=== PATIENT | male | born 1970 | race American Indian/Alaskan Native ===

== ENCOUNTER 2017-05-19 21:36 | Emergency (ER) | payer MEDICAID, OTHER ==
[2017-05-19 22:17] LABS: Basophils % (Auto) 0.6 % (0.0-1.8); Eosinophils % (Auto) 0.2 % (0.0-4.3); Hematocrit 41.5 % (35.5-45.6); Hemoglobin 13.4 gm/dl (11.8-15.2); Mean Corpuscular HGB Conc 32 % (32-34); Mean Corpuscular Volume 79 fl (84-94); Platelet Count 351 K/mm3 (140-440); Red Blood Count 5.24 M/mm3 (3.65-5.03); Red Cell Distribution Width 18.5 % (13.2-15.2); White Blood Count 12.5 K/mm3 (4.5-11.0)
[2017-05-19 22:19] LABS: Mean Corpuscular Hemoglobin 26 pg (28-32)
[2017-05-19 22:20] LABS: Anion Gap 22 mmol/L; BUN/Creatinine Ratio 15; Blood Urea Nitrogen 16 mg/dL (9-20); Calcium 9.8 mg/dL (8.4-10.2); Carbon Dioxide 25 mmol/L (22-30); Chloride 101.4 mmol/L (98-107); Glucose 71 mg/dL (75-100); Potassium 4.3 mmol/L (3.6-5.0); Sodium 144 mmol/L (137-145)
[2017-05-19 22:40] LABS: Urine Drugs of Abuse Note Disclamer
[2017-05-19 22:52] LABS: Bilirubin,Urine NEG (Negative); Blood,Urine NEG (Negative); Ketones,Urine 20 mg/dL (Negative); Leukocyte Esterase,Urine NEG (Negative); Mucus,Urine FEW /HPF; Nitrite,Urine NEG (Negative); Protein,Urine <15 mg/dL mg/dL (Negative)
--- NOTE | 2017-05-20 03:48 | Emergency Department Report ---
ED Psych HPI - General Chief Complaint: Psych Stated Complaint: SUICIDAL,DEPRESSED,HEARING VOICES Time Seen by Provider: 05/20/17 03:20 Source: patient Mode of arrival: Ambulatory - History of Present Illness Initial Comments: 47 YO MALE HEARING VOICES SINCE YESTERDAY WHO ARE TELLING HIM TO KILL HIMSELF.. HE ALSO FEELS DEPRESSED.SMELLS OF ALCOHOL.. MD Complaint: suicidal ideation -: days(s) (1) Associated Psychiatric Symptoms: depression, suicidal ideation History of same: Yes Quality: constant Improves With: none Context: recent alcohol abuse Associated Symptoms: denies other symptoms Treatments Prior to Arrival: none If Self Harm: admits thoughts of - Related Data Allergies Allergy/AdvReac Type Severity Reaction Status Date / Time fluoxetine [From Prozac] Allergy Unknown Verified 05/19/17 21:49 haloperidol [From Haldol] Allergy Unknown Verified 05/19/17 21:49 risperidone [From Risperdal] Allergy Unknown Verified 05/19/17 21:49 ED Review of Systems ROS: Stated complaint: SUICIDAL,DEPRESSED,HEARING VOICES Other details as noted in HPI Constitutional: denies: chills, fever Eyes: denies: eye pain, eye discharge, vision change ENT: denies: ear pain, throat pain Respiratory: denies: cough, shortness of breath, wheezing Cardiovascular: denies: chest pain, palpitations Endocrine: no symptoms reported Gastrointestinal: denies: abdominal pain, nausea, diarrhea Genitourinary: denies: urgency, dysuria Musculoskeletal: denies: back pain, joint swelling, arthralgia Skin: denies: rash, lesions Neurological: denies: headache, weakness, paresthesias Psychiatric: depression, auditory hallucinations, suicidal thoughts. denies: anxiety Hematological/Lymphatic: denies: easy bleeding, easy bruising ED Past Medical Hx - Past Medical History Previous Medical History?: Yes Hx Hypertension: Yes Hx Diabetes: Yes (boarderline) Hx Psychiatric Treatment: Yes (depression,suicidal attempts) Additional medical history: drug and alcohol addiction - Surgical History Past Surgical History?: Yes Additional Surgical History: CIRCUMCISION - Family History Family history: hypertension - Social History Smoking Status: Never Smoker Substance Use Type: Alcohol, Cocaine, Methamphetamines ED Physical Exam - General Limitations: No Limitations General appearance: alert, in no apparent distress - Head Head exam: Present: atraumatic, normocephalic - Eye Eye exam: Present: normal appearance, EOMI - ENT ENT exam: Present: mucous membranes moist - Neck Neck exam: Present: normal inspection, full ROM - Respiratory Respiratory exam: Present: normal lung sounds bilaterally. Absent: respiratory distress - Cardiovascular Cardiovascular Exam: Present: regular rate, normal rhythm. Absent: systolic murmur, diastolic murmur, rubs, gallop - GI/Abdominal GI/Abdominal exam: Present: soft, normal bowel sounds - Rectal Rectal exam: Present: deferred - Extremities Exam Extremities exam: Present: normal inspection, full ROM - Back Exam Back exam: Present: normal inspection - Neurological Exam Neurological exam: Present: alert, oriented X3 - Psychiatric Psychiatric exam: Present: normal affect, normal mood - Skin Skin exam: Present: warm, dry, intact, normal color. Absent: rash ED Course Vital Signs 05/19/17 05/20/17 21:45 03:22 Temperature 98.4 F 98 F Pulse Rate 85 78 Respiratory 18 18 Rate Blood Pressure 139/77 Blood Pressure 137/85 [Left] O2 Sat by Pulse 100 99 Oximetry ED Medical Decision Making - Lab Data Result diagrams: 05/19/17 21:51 05/19/17 21:51 Critical care attestation.: If time is entered above; I have spent that time in minutes in the direct care of this critically ill patient, excluding procedure time. ED Disposition Clinical Impression: Suicidal ideation, Medical clearance for psychiatric admission Depression Qualifiers: Depression Type: unspecified Qualified Code(s): F32.9 - Major depressive disorder, single episode, unspecified Disposition: DC/TX-65 PSY HOSP/PSY UNIT Is pt being admited?: Yes Does the pt Need Aspirin: No Condition: Stable Referrals: PRIMARY CARE, [Primary Care Provider] - 3-5 Days Time of Disposition: 06:24 ([facility]CULATION WORKER HAS SEEN AND IS ATTEMPTING TO FIND PLACEMENT FOR [facility] PT)
--- NOTE | 2017-05-20 14:54 | Consultation ---
History of Present Illness - Reason for Consult Consult date: 05/20/17 Reason for consult: Mental Health Evaluation Requesting physician: PEDRO PABLO REARDON - Chief Complaint Chief complaint: "I don't feel well mentally" - History of Present Psychiatric Illness 47 y.o. AA male presenting to [facility] for SI's and experiencing AH's. Today patient is calm, but withdrawn during the assessment. He stated that he hate his life and want to stop using recreational drugs. He stated not having family support when he is experiencing crisis. He stated being depressed because he hear voices telling him to kill himself. He stated that the voices are driving him "nutts." He endorses SI's without a plan at this time. He could not confirm or deny hearing voices when he isn't using recreational drugs. He stated that alcohol has been an issue in his life for several years. He stated drinking alcohol help "quiet" the voices he experience. He stated that he have not been medication compliant for months. The patient stated that he took Seroqiel in the past. He denies HI's and VH's. He denies manic episodes, but admitted to erratic sleep with a poor appetite the past few weeks. Medications and Allergies Allergies Allergy/AdvReac Type Severity Reaction Status Date / Time fluoxetine [From Prozac] Allergy Unknown Verified 05/19/17 21:49 haloperidol [From Haldol] Allergy Unknown Verified 05/19/17 21:49 risperidone [From Risperdal] Allergy Unknown Verified 05/19/17 21:49 Past psychiatric history - Past Medical History Past Medical History: hypertension Past Surgical History: No surgical history - past Psychiatric treatment and history Psych: Depression psychiatric treatment history: Multiple inpatient psy settings. Cannot confirm or deny a fam psy hx. - Social History Social history: other (Homeless) Mental Status Exam - Vital signs Last Vital Signs Temp 98 F 05/20/17 03:22 Pulse 78 05/20/17 03:22 Resp 18 05/20/17 03:22 BP 137/85 05/20/17 03:22 Pulse Ox 99 05/20/17 03:22 - Exam Narrative exam: MSE: Appearance: calm, cooperative Behavior: regular eye contact Speech: regular rate and tone Mood: "depressed" withdrawn Affect: flat Thought Process: circumstantial Thought Content: denies HI's and VH's Motor Activity: sitting up in bed Cognition: A/O x3 Insight: poor Judgment: poor Results Result Diagrams: 05/19/17 21:51 05/19/17 21:51 Abnormal lab results 05/19/17 05/19/17 Range/Units 21:51 21:51 WBC 12.5 H (4.5-11.0) K/mm3 RBC 5.24 H (3.65-5.03) M/mm3 MCV 79 L (84-94) fl MCH 26 L (28-32) pg RDW 18.5 H (13.2-15.2) % Lymph % (Auto) 10.1 L (13.4-35.0) % Seg Neutrophils % 86.3 H (40.0-70.0) % Seg Neutrophils # 10.8 H (1.8-7.7) K/mm3 Glucose 71 L (75-100) mg/dL All other labs normal. Assessment and Plan Assessment and plan: Impression: Unspecified Mood DO with psy featiures. Substance Use DO (cocaine/ marijuana). Alcohol Use DO. Today patient is calm, but withdrawn during the assessment. Patient endorses SI's. Patient positive for marijuana and cocaine. Elevated alcohol serum 0.03 on admission. DDx: R/O Bipolar DO, MDD, Schizoaffective DO, R/O Substance Induced Mood/ Psychotic DO, R/O Alcohol Use DO Recommendation/Plan: Continue 1013 with placement to inpatient psy services. Start Seroquel 200 mg PO HS for psychosis/mood. Discussed possible metabolic side effects of Seroquel with patient.
[2017-05-21 09:40] VITALS: BP 132/94
--- NOTE | 2017-05-21 10:24 | Progress Note ---
Subjective - Reason for Consult Consult date: 05/21/17 Reason for consult: Psychiatry Follow-up - Chief Complaint Chief complaint: "I need help" 47 y.o. AA male presenting to [facility] for SI's and experiencing AH's. Today patient is calm and cooperative during the assessment. He stated being upset with himself because of the choices he make. He stated that his biggest issue is "using drugs." He stated that the voices are still active and he still endorses SI's. He denies HI's and VH's. He denies any side effects of his medication. Mental Status Exam - Vital signs Last Vital Signs Temp 97.9 F 05/21/17 08:00 Pulse 66 05/21/17 08:00 Resp 18 05/21/17 08:00 BP 132/94 05/21/17 08:00 Pulse Ox 100 05/21/17 08:00 - Exam Narrative exam: MSE: Appearance: calm, cooperative Behavior: regular eye contact Speech: regular rate and tone Mood: "depressed" Affect: flat Thought Process: circumstantial Thought Content: denies HI's and VH's Motor Activity: sitting up in bed Cognition: A/O x3 Insight: poor Judgment: poor Assessment and Plan Impression: Unspecified Mood DO with psy featiures. Substance Use DO (cocaine/ marijuana). Alcohol Use DO. Today patient is calm, but withdrawn during the assessment. Patient endorses SI's. Patient positive for marijuana and cocaine. Elevated alcohol serum 0.03 on admission. DDx: R/O Bipolar DO, MDD, Schizoaffective DO, R/O Substance Induced Mood/ Psychotic DO, R/O Alcohol Use DO Recommendation/Plan: Continue 1013 with placement to [facility] today. Continue Seroquel 200 mg PO HS for psychosis/mood. Discussed possible metabolic side effects of Seroquel with patient.
== END 2017-05-21 10:48 ==
LOC: ED 21:36
DX: F32.9 Major depressive disorder, single episode, unspecified (principal); R45.851 Suicidal ideations; R44.0 Auditory hallucinations; I10 Essential (primary) hypertension; E11.9 Type 2 diabetes mellitus without complications; F15.10 Other stimulant abuse, uncomplicated; F14.10 Cocaine abuse, uncomplicated; F10.10 Alcohol abuse, uncomplicated; Z88.8 Allergy status to other drugs, medicaments and biological substances
CPT/HCPCS: 36415; 80048; 80307; 81001; 85025; 99285; G0480; 80320

== ENCOUNTER 2020-03-06 11:14 | Emergency (ER) | payer MEDICAID ==
[2020-03-06] MEDS ORDERED: LORazepam 2 MG/ML VIAL IM PRN (11:49)
--- NOTE | 2020-03-06 11:50 | Emergency Department Report ---
ED Psych HPI - General Chief Complaint: Psych Stated Complaint: SI Time Seen by Provider: 03/06/20 11:42 Source: patient, EMS ( EMS documentation not available at time of chart dictation ), RN notes reviewed, old records reviewed Mode of arrival: Ambulatory Limitations: No Limitations - History of Present Illness Initial Comments: The patient was evaluated in the emergency department for symptoms described in the history of present illness. He/she was evaluated in the context of the global COVID-19 pandemic, which necessitated consideration that the patient might be at risk for infection with the virus that causes COVID-19. Institutional protocols and algorithms that pertain to the evaluation of patients at risk for COVID-19 are in a state of rapid change based on information released by regulatory bodies including the CDC and federal and [facility] organizations. These policies and algorithms were followed during the patient's care in the emergency department. Please note that these policies, procedures and recommendations changed on a rapid basis. Patient is a 50-year-old gentleman with a history of psychiatric disease, reports that he currently takes trazodone, presenting to the ER with a complaint of auditory hallucinations and plan to kill himself. He states that he will cut himself. He states he has not overdosed on anything. He does not have homicidality. He specifically denies headache, neck pain, chest pain, abdominal pain, shortness of breath, cough, loss of taste, and loss of smell. MD Complaint: suicidal ideation, feels depressed -: days(s) Associated Psychiatric Symptoms: suicidal ideation, auditory hallucinations History of same: Yes Quality: constant Improves With: none Worsens With: none If Self Harm: admits thoughts of, has plan - Related Data Home Medications Medication Instructions Recorded Confirmed Last Taken Benztropine 0.5 mg PO QAM 03/06/20 03/06/20 03/05/20 OLANzapine [Zyprexa] 10 mg PO QHS 03/06/20 03/06/20 03/05/20 Paliperidone Palmitate (Nf) 156 mg IM QMONTH 03/06/20 03/06/20 Unknown [Invega Sustenna (Nf)] traZODone [Desyrel] 100 mg PO QHS 03/06/20 03/06/20 03/05/20 Allergies Allergy/AdvReac Type Severity Reaction Status Date / Time fluoxetine [From Prozac] Allergy Unknown Verified 05/19/17 21:49 haloperidol [From Haldol] Allergy Unknown Verified 05/19/17 21:49 risperidone [From Risperdal] Allergy Unknown Verified 05/19/17 21:49 ED Review of Systems ROS: Stated complaint: SI Other details as noted in HPI Constitutional: denies: fever Eyes: denies: eye discharge ENT: denies: epistaxis Respiratory: denies: cough Cardiovascular: denies: chest pain Gastrointestinal: denies: abdominal pain Genitourinary: denies: dysuria Musculoskeletal: myalgia Skin: denies: lesions Neurological: denies: weakness Psychiatric: anxiety, depression, auditory hallucinations, suicidal thoughts. denies: homicidal thoughts ED Past Medical Hx - Past Medical History Hx Hypertension: Yes Hx Diabetes: Yes (boarderline) Hx Psychiatric Treatment: Yes (depression,suicidal attempts) Additional medical history: drug and alcohol addiction - Surgical History Additional Surgical History: CIRCUMCISION - Social History Smoking Status: Never Smoker Substance Use Type: Alcohol, Cocaine, Methamphetamines - Medications Home Medications: Home Medications Medication Instructions Recorded Confirmed Last Taken Type Benztropine 0.5 mg PO QAM 03/06/20 03/06/20 03/05/20 History OLANzapine [Zyprexa] 10 mg PO QHS 03/06/20 03/06/20 03/05/20 History Paliperidone Palmitate (Nf) 156 mg IM QMONTH 03/06/20 03/06/20 Unknown History [Invega Sustenna (Nf)] traZODone [Desyrel] 100 mg PO QHS 03/06/20 03/06/20 03/05/20 History ED Physical Exam - General Limitations: No Limitations General appearance: alert, in no apparent distress - Head Head exam: Present: atraumatic, normocephalic - Eye Eye exam: Present: normal appearance, EOMI. Absent: nystagmus - ENT ENT exam: Present: normal exam, normal orophraynx, mucous membranes moist, normal external ear exam - Neck Neck exam: Present: normal inspection, full ROM. Absent: tenderness, meningismus - Respiratory Respiratory exam: Present: normal lung sounds bilaterally. Absent: respiratory distress, wheezes, rales, rhonchi, stridor, decreased breath sounds - Cardiovascular Cardiovascular Exam: Present: regular rate, normal rhythm, normal heart sounds. Absent: bradycardia, tachycardia, irregular rhythm, systolic murmur, diastolic murmur, rubs, gallop - GI/Abdominal GI/Abdominal exam: Present: soft. Absent: distended, tenderness, guarding, rebound, rigid, pulsatile mass - Rectal Rectal exam: Present: deferred - Extremities Exam Extremities exam: Present: normal inspection, full ROM, other (2+ pulses noted in the bilateral upper extremities. There is no long bony tenderness. The muscular compartments are soft. The pelvis is stable.). Absent: pedal edema, calf tenderness - Back Exam Back exam: Present: normal inspection, full ROM. Absent: tenderness, CVA tenderness (R), CVA tenderness (L), paraspinal tenderness, vertebral tenderness - Neurological Exam Neurological exam: Present: alert, normal gait, other (No facial droop. Tongue midline. Extraocular movements intact bilaterally. Facial sensation intact to light touch in V1, V2, V3 distribution bilaterally. 5 and a 5 strength in 4 extremities. Sensation intact to light touch in 4 extremities.). Absent: motor sensory deficit - Psychiatric Psychiatric exam: Present: suicidal ideation - Skin Skin exam: Present: warm, dry, intact, normal color. Absent: rash ED Course Vital Signs 03/06/20 14:14 Temperature 97.8 F Pulse Rate 87 Respiratory 16 Rate Blood Pressure 147/98 [Left] Blood Pressure 148/100 [Right] O2 Sat by Pulse 99 Oximetry - Reevaluation(s) Reevaluation #1: 03/06/20 12:13 Differential diagnosis, including but not limited to: Suicidality, medical clearance for psychiatric placement Assessment and plan: 50-year-old gentleman, with no acute medical complaints, Who is afebrile, with reassuring vital signs, with a benign and unremarkable p hysical examination, here with report of auditory hallucinations and plan to kill himself. Placed on hold, obtain psychiatric consultation, obtain appropriate laboratory studies to exclude emergent toxicologic ingestion, we clinically do not suspect COVID at this time. Discussed plan of care with the patient, who verbalized understanding, and who is amenable to this plan of care. Reevaluation #2: 03/06/20 14:36 Vital signs reviewed, appreciated, and unremarkable. The psychiatry team has recommended a 1013, which I have signed and filled out. The psychiatry team has requested a COVID test, for screening purposes, for placement to our fifth floor psychiatry unit. I do not clinically suspect COVID, but we will order the tests to facilitate placement. At this point in time, patient does not appear to have an immediate medical contraindication to psychiatric admission, evaluation, consultation and placement. ED Medical Decision Making - Lab Data Result diagrams: 03/06/20 12:11 03/06/20 12:11 Lab Results 03/06/20 03/06/20 03/06/20 Range/Units 11:55 11:55 12:11 Hgb 12.9 (11.8-15.2) gm/dl Hct 37.4 (35.5-45.6) % Plt Count 338 (140-440) K/mm3 Sodium (137-145) mmol/L Potassium (3.6-5.0) mmol/L Chloride (98-107) mmol/L Carbon Dioxide (22-30) mmol/L Anion Gap mmol/L BUN (9-20) mg/dL Creatinine (0.8-1.3) mg/dL Estimated GFR ml/min BUN/Creatinine Ratio % Glucose (75-100) mg/dL Calcium (8.4-10.2) mg/dL Magnesium (1.7-2.3) mg/dL Total Creatine Kinase (55-170) units/L Urine Color Yellow (Yellow) Urine Turbidity Clear (Clear) Urine pH 6.0 (5.0-7.0) Ur Specific [place] 1.014 (1.003-1.030) Urine Protein <15 mg/dl (Negative) mg/dL Urine Glucose (UA) Neg (Negative) mg/dL Urine Ketones Neg (Negative) mg/dL Urine Blood Neg (Negative) Urine Nitrite Neg (Negative) Urine Bilirubin Neg (Negative) Urine Urobilinogen < 2.0 (<2.0) mg/dL Ur Leukocyte Esterase Neg (Negative) Urine WBC (Auto) < 1.0 (0.0-6.0) /HPF Urine RBC (Auto) 1.0 (0.0-6.0) /HPF Urine Mucus Few /HPF Salicylates (2.8-20.0) mg/dL Urine Opiates Screen Negative Urine Methadone Screen Negative Acetaminophen (10.0-30.0) ug/mL Ur Barbiturates Screen Negative Ur Phencyclidine Scrn Negative Ur Amphetamines Screen Negative U Benzodiazepines Scrn Negative Urine Cocaine Screen Negative U Marijuana (THC) Screen Negative Drugs of Abuse Note Disclamer Plasma/Serum Alcohol (0-0.07) % 03/06/20 03/06/20 03/06/20 Range/Units 12:11 12:11 12:11 Hgb (11.8-15.2) gm/dl Hct (35.5-45.6) % Plt Count (140-440) K/mm3 Sodium 138 (137-145) mmol/L Potassium 3.7 (3.6-5.0) mmol/L Chloride 103.6 (98-107) mmol/L Carbon Dioxide 25 (22-30) mmol/L Anion Gap 13 mmol/L BUN 11 (9-20) mg/dL Creatinine 1.2 (0.8-1.3) mg/dL Estimated GFR > 60 ml/min BUN/Creatinine Ratio 9 % Glucose 98 (75-100) mg/dL Calcium 9.9 (8.4-10.2) mg/dL Magnesium 2.00 (1.7-2.3) mg/dL Total Creatine Kinase 254 H (55-170) units/L Urine Color (Yellow) Urine Turbidity (Clear) Urine pH (5.0-7.0) Ur Specific [place] (1.003-1.030) Urine Protein (Negative) mg/dL Urine Glucose (UA) (Negative) mg/dL Urine Ketones (Negative) mg/dL Urine Blood (Negative) Urine Nitrite (Negative) Urine Bilirubin (Negative) Urine Urobilinogen (<2.0) mg/dL Ur Leukocyte Esterase (Negative) Urine WBC (Auto) (0.0-6.0) /HPF Urine RBC (Auto) (0.0-6.0) /HPF Urine Mucus /HPF Salicylates 0.3 L (2.8-20.0) mg/dL Urine Opiates Screen Urine Methadone Screen Acetaminophen 5.0 L (10.0-30.0) ug/mL Ur Barbiturates Screen Ur Phencyclidine Scrn Ur Amphetamines Screen U Benzodiazepines Scrn Urine Cocaine Screen U Marijuana (THC) Screen Drugs of Abuse Note Plasma/Serum Alcohol (0-0.07) % 03/06/20 Range/Units 12:11 Hgb (11.8-15.2) gm/dl Hct (35.5-45.6) % Plt Count (140-440) K/mm3 Sodium (137-145) mmol/L Potassium (3.6-5.0) mmol/L Chloride (98-107) mmol/L Carbon Dioxide (22-30) mmol/L Anion Gap mmol/L BUN (9-20) mg/dL Creatinine (0.8-1.3) mg/dL Estimated GFR ml/min BUN/Creatinine Ratio % Glucose (75-100) mg/dL Calcium (8.4-10.2) mg/dL Magnesium (1.7-2.3) mg/dL Total Creatine Kinase (55-170) units/L Urine Color (Yellow) Urine Turbidity (Clear) Urine pH (5.0-7.0) Ur Specific [place] (1.003-1.030) Urine Protein (Negative) mg/dL Urine Glucose (UA) (Negative) mg/dL Urine Ketones (Negative) mg/dL Urine Blood (Negative) Urine Nitrite (Negative) Urine Bilirubin (Negative) Urine Urobilinogen (<2.0) mg/dL Ur Leukocyte Esterase (Negative) Urine WBC (Auto) (0.0-6.0) /HPF Urine RBC (Auto) (0.0-6.0) /HPF Urine Mucus /HPF Salicylates (2.8-20.0) mg/dL Urine Opiates Screen Urine Methadone Screen Acetaminophen (10.0-30.0) ug/mL Ur Barbiturates Screen Ur Phencyclidine Scrn Ur Amphetamines Screen U Benzodiazepines Scrn Urine Cocaine Screen U Marijuana (THC) Screen Drugs of Abuse Note Plasma/Serum Alcohol < 0.01 (0-0.07) % Vital Signs 03/06/20 14:14 Temperature 97.8 F Pulse Rate 87 Respiratory 16 Rate Blood Pressure 147/98 [Left] Blood Pressure 148/100 [Right] O2 Sat by Pulse 99 Oximetry Critical care attestation.: If time is entered above; I have spent that time in minutes in the direct care of this critically ill patient, excluding procedure time. ED Disposition Clinical Impression: Medical clearance for psychiatric admission, Suicidal ideation, Auditory hallucinations Disposition: DC/TX-65 PSY HOSP/PSY UNIT Is pt being admited?: No Does the pt Need Aspirin: No Condition: Good
[2020-03-06 12:07] LABS: Bilirubin,Urine NEG (Negative); Blood,Urine NEG (Negative); Color,Urine Yellow (Yellow); Mucus,Urine FEW /HPF; Protein,Urine <15 mg/dL mg/dL (Negative); Urobilinogen,Urine < 2.0 mg/dL (<2.0); WBC,Urine < 1.0 /HPF (0.0-6.0)
[2020-03-06 12:18] LABS: Amphetamine Screen,Urine Negative; Benzodiazepines Screen,Urine Negative; Cannabinoid Screen,Urine Negative; Cocaine Screen,Urine Negative; Methadone Screen,Urine Negative; Opiate Screen,Urine Negative
[2020-03-06 12:33] LABS: Hematocrit 37.4 % (35.5-45.6); Hemoglobin 12.9 gm/dl (11.8-15.2)
[2020-03-06 13:16] LABS: BUN/Creatinine Ratio 9; Blood Urea Nitrogen 11 mg/dL (9-20); Calcium 9.9 mg/dL (8.4-10.2); Hemolysis Index 4
[2020-03-06] MEDS ORDERED: FLUoxetine 10 MG TAB PO SCH (22:00)
[2020-03-06] MEDS ORDERED: BENZTROPINE 1 MG TAB PO SCH (22:00)
[2020-03-06] MEDS ORDERED: traZODone 50 MG TAB PO SCH (22:00)
[2020-03-06] MEDS ORDERED: MELATONIN 5 MG TAB PO SCH (22:00)
[2020-03-07 09:01] VITALS: BP 161/99
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
== END 2020-03-07 15:47 ==
LOC: ED 11:14 → EEVIPCON 11:14 → ED 03-07 15:47
DX: R45.851 Suicidal ideations (principal); R44.0 Auditory hallucinations; I10 Essential (primary) hypertension; E11.9 Type 2 diabetes mellitus without complications; F14.10 Cocaine abuse, uncomplicated; F15.10 Other stimulant abuse, uncomplicated; Z79.899 Other long term (current) drug therapy; Z88.6 Allergy status to analgesic agent
CPT/HCPCS: 36415; 80048; 80307; 81001; 82550; 83735; 85014; 85018; 85049; 99284; U0003; 80320; G0480

== ENCOUNTER 2020-03-07 15:32 | Inpatient (IN) | payer MEDICAID ==
[2020-03-07] MEDS ORDERED: FLUoxetine 10 MG TAB PO SCH (18:00)
[2020-03-07 18:57] LABS: Basophils % (Auto) 0.8 % (0.0-1.8); Eosinophils # (Auto) 0.2 K/mm3 (0.0-0.4); Eosinophils % (Auto) 3.6 % (0.0-4.3); Hematocrit 35.7 % (35.5-45.6); Hemoglobin 12.1 gm/dl (11.8-15.2); Lymphocytes # (Auto) 1.6 K/mm3 (1.2-5.4); Mean Corpuscular HGB Conc 34 % (32-34); Mean Corpuscular Volume 80 fl (84-94); Monocytes # (Auto) 0.3 K/mm3 (0.0-0.8); Monocytes % (Auto) 6.4 % (0.0-7.3); Platelet Count 310 K/mm3 (140-440); Red Blood Count 4.49 M/mm3 (3.65-5.03); Red Cell Distribution Width 18.1 % (13.2-15.2)
[2020-03-07 19:14] LABS: Chol/HDL Ratio 5.11 %
[2020-03-07] MEDS: traZODone 50 MG TAB PO SCH (21:07)
--- NOTE | 2020-03-08 08:33 | History and Physical Report ---
GP History & Physical - History of Present Illness Date of admission: 03/07/20 Date of Examination: 03/08/20 Reason for Admission: Danger to self, Severe anxiety/depression History of Present Illness: The patient's medical record was reviewed and the patient's progress was discussed with the nursing staff. During my interview with the patient this morning, he is sitting in the dayroom. He is a/o x 3. He is calm and cooperative. The patient expresses thoughts of suicidal and hearing voices telling him to harm himself. He says, "I do feel a little better than yesterday." The patient says he was diagnosed with "schizoaffective disorder." He says he takes "invega injection." The patient says he had it "Sunday," and says his "other meds are not working." Mr. Serrato says he's attempted suicide "three times, by cutting myself, and I tried to hang myself with my shoestring." He says he's had "a lot of admits." The patient denies illicit drug use, or alcohol. He says he smokes "a pack of cigarets a day." PAST PSYCHIATRIC HISTORY Diagnoses: schizoaffective disorder Suicide attempts or Self-harm behavior: three Prior psychiatric hospitalizations: "a lot" Substance Abuse history: Denies Previous psychiatric medications tried: Invega Outpatient treatment: yes PAST MEDICAL HISTORY: sciatic nerve Family Psychiatric History: None reported or documented SOCIAL HISTORY Marital Status: Living Arrangements: personal [facility] Employment Status: Disabled Access to guns/weapons: Denies Education: high school grad History of Abuse: Denies Legal History: Denies EVIEW OF SYSTEMS Constitutional: Negative for weight loss ENT: Negative for stridor Respiratory: Negative for cough or hemoptysis All other systems reviewed and are negative MENTAL STATUS EXAMINATION General Appearance and Behavior: Age appropriate, wearing appropriate clothes, calm and cooperative. Polite Mood: "a little better" Affect and affective range: congruent with mood Thought Process: logical Thought Content: hallucinations Speech: Normal volume, Regular rate and rhythm Suicidal Ideation: Yes Homicidal Ideation: Denies Homicidal Hallucinations: Denies Delusions: None elicited Impulse Control: Unimpaired Insight and Judgment: Normal insight and judgment Memory: Normal Attention: Normal Orientation: Alert, oriented Assessment (1) Schizoaffective Disorder Treatment Plan Patient admitted for inpatient psychiatric evaluation, medication adjustment and close monitoring The patient's behavior, mood, sleep and appetite will be closely monitored. Patient enrolled in individual and group therapeutic sessions and encouraged to attend. Patient provided with a safe and structured environment. Patient's physical health needs will be addressed by the Hospitalist. Hospitalist Consulted Labs including CBC, CMP, Lipid profile and Hemoglobin A1C levels ordered for baseline reference Social Assessment will be completed and the Charge Master Coordinator will work with patient and family to ensure a suitable and safe disposition Medication adjustment will be made as clinically indicated Increase Olanzapine 15mg po daily Usual Wellness Rastafari/Preservation: - Start Trazodone 50 mg po QHS & 50 mg po QHS PRN between 10 PM & 2 AM for insomnia - Start Melatonin 5 mg po QHS to promote circadian rhythm The patient agreed on the treatment plan, understood the risk, benefit, alternative treatment, potential consequence of no treatment, and gave informed consent. The patient is expected to improve for the treatment of schizoaffective disorder. Estimated days: 7 Post hospital care: primary care provider, psychiatric provider Legal Status: Voluntary Reaction to Hospitalization: Accepting Medications and Allergies Allergies Allergy/AdvReac Type Severity Reaction Status Date / Time fluoxetine [From Prozac] Allergy Unknown Verified 05/19/17 21:49 haloperidol [From Haldol] Allergy Unknown Verified 05/19/17 21:49 risperidone [From Risperdal] Allergy Unknown Verified 05/19/17 21:49 Home Medications Medication Instructions Recorded Confirmed Last Taken Type Benztropine 0.5 mg PO QAM 03/06/20 03/07/20 03/05/20 History OLANzapine [Zyprexa] 10 mg PO QHS 03/06/20 03/07/20 03/05/20 History Paliperidone Palmitate (Nf) 156 mg IM QMONTH 03/06/20 03/07/20 Unknown History [Invega Sustenna (Nf)] traZODone [Desyrel] 100 mg PO QHS 03/06/20 03/07/20 03/05/20 History Active Meds: Active Medications Olanzapine (Zyprexa) 10 mg PO QHS [facility] Last Admin: 03/07/20 21:08 Dose: 10 mg Documented by: Trazodone HCl (Desyrel) 100 mg PO QHS [facility] Last Admin: 03/07/20 21:07 Dose: 100 mg Documented by: Results - Results Labs/Vitals: Laboratory Last Values WBC 4.9 K/mm3 (4.5-11.0) 03/07/20 18:44 RBC 4.49 M/mm3 (3.65-5.03) 03/07/20 18:44 Hgb 12.1 gm/dl (11.8-15.2) 03/07/20 18:44 Hct 35.7 % (35.5-45.6) 03/07/20 18:44 MCV 80 fl (84-94) L 03/07/20 18:44 MCH 27 pg (28-32) L 03/07/20 18:44 MCHC 34 % (32-34) 03/07/20 18:44 RDW 18.1 % (13.2-15.2) H 03/07/20 18:44 Plt Count 310 K/mm3 (140-440) 03/07/20 18:44 Lymph % (Auto) 33.0 % (13.4-35.0) 03/07/20 18:44 [place] % (Auto) 6.4 % (0.0-7.3) 03/07/20 18:44 Eos % (Auto) 3.6 % (0.0-4.3) 03/07/20 18:44 Baso % (Auto) 0.8 % (0.0-1.8) 03/07/20 18:44 Lymph # (Auto) 1.6 K/mm3 (1.2-5.4) 03/07/20 18:44 [place] # (Auto) 0.3 K/mm3 (0.0-0.8) 03/07/20 18:44 Eos # (Auto) 0.2 K/mm3 (0.0-0.4) 03/07/20 18:44 Baso # (Auto) 0.0 K/mm3 (0.0-0.1) 03/07/20 18:44 Seg Neutrophils % 56.2 % (40.0-70.0) 03/07/20 18:44 Seg Neutrophils # 2.8 K/mm3 (1.8-7.7) 03/07/20 18:44 POC Glucose 135 (70-105) H 03/07/20 18:33 Hemoglobin A1c 6.0 % (4-6) 03/07/20 18:41 Triglycerides 240 mg/dL (2-149) H 03/07/20 18:41 Cholesterol 230 mg/dL (50-199) H 03/07/20 18:41 LDL Cholesterol Direct 162 mg/dL (50-130) H 03/07/20 18:41 HDL Cholesterol 45 mg/dL (40-59) 03/07/20 18:41 Cholesterol/HDL Ratio 5.11 % 03/07/20 18:41 TSH 0.851 mlU/mL (0.270-4.200) 03/07/20 18:41 Last Vital Signs Temp 98.6 F 03/08/20 07:29 Pulse 72 03/08/20 07:29 Resp 18 03/08/20 07:29 BP 139/93 03/08/20 07:29 Pulse Ox 99 03/08/20 07:29 Physical Examination - Constitutional Vitals: Vital Signs Temp Pulse Resp BP Pulse Ox 98.6 F 72 18 139/93 99 03/08/20 07:29 03/08/20 07:29 03/08/20 07:29 03/08/20 07:29 03/08/20 07:29 Temperature -Last 24 Hours Temperature 98.6 F Temperature 98.4 F Temperature 98.0 F Mental Status Exam - Vital signs Last Vital Signs Temp 98.6 F 03/08/20 07:29 Pulse 72 03/08/20 07:29 Resp 18 03/08/20 07:29 BP 139/93 03/08/20 07:29 Pulse Ox 99 03/08/20 07:29 Physician Certification - Certification Statement Physician Certification Statement: This is an acknowledgement statement that TOMASZ SERRATO III is a 50 year old M who requires inpatient psychiatric admission for treatment which could reasonably be expected to improve the patient's condition for Estimated period of time patient will need to remain in the hospital: [ ] Plan for post-hospital care: [ ]
[2020-03-08] MEDS: BENZTROPINE 0.5 MG TAB PO SCH (09:21)
[2020-03-08] MEDS ORDERED: BENZTROPINE 0.5 MG PO SCH (10:00)
--- NOTE | 2020-03-08 14:21 | Consultation ---
History of Present Illness - Reason for Consult Consult date: 03/08/20 Medical management Requesting physician: CAPRICE PRINCE - History of Present Illness 50-year-old male with hypertension and substance abuse admitted to [facility] with suicidal ideations and has been diagnosed with schizoaffective disorder. We were consulted for medical management while inpatient. Patient denies any fevers, chills, cough, chest pain, hemoptysis, involuntary weight loss, fatigue or night sweats. Patient denies any sick contacts or contact with persons with known COVID-19. Past History Past Medical History: hypertension ("Borderline") Past Surgical History: No surgical history Social history: , lives with family, smoking, full code. denies: alcohol abuse, prescription drug abuse, IV drug use Family history: hypertension Medications and Allergies Allergies Allergy/AdvReac Type Severity Reaction Status Date / Time fluoxetine [From Prozac] Allergy Unknown Verified 05/19/17 21:49 haloperidol [From Haldol] Allergy Unknown Verified 05/19/17 21:49 risperidone [From Risperdal] Allergy Unknown Verified 05/19/17 21:49 Home Medications Medication Instructions Recorded Confirmed Last Taken Type Benztropine 0.5 mg PO QAM 03/06/20 03/07/20 03/05/20 History OLANzapine [Zyprexa] 10 mg PO QHS 03/06/20 03/07/20 03/05/20 History Paliperidone Palmitate (Nf) 156 mg IM QMONTH 03/06/20 03/07/20 Unknown History [Invega Sustenna (Nf)] traZODone [Desyrel] 100 mg PO QHS 03/06/20 03/07/20 03/05/20 History Active Meds: Active Medications Benztropine Mesylate (Cogentin) 0.5 mg PO DAILY [facility] Last Admin: 03/08/20 09:21 Dose: 0.5 mg Documented by: Melatonin (Melatonin) 5 mg PO QHS PRN PRN Reason: Sleep Olanzapine (Zyprexa) 15 mg PO QDAY [facility] Last Admin: 03/08/20 09:21 Dose: 15 mg Documented by: Trazodone HCl (Desyrel) 100 mg PO QHS [facility] Last Admin: 03/07/20 21:07 Dose: 100 mg Documented by: Review of Systems Constitutional: no weight loss, no weight gain, no fever, no chills, no sweats, no night sweats, no anorexia, no fatigue, no weakness, no malaise, no lethargy Ears, nose, mouth and throat: no ear pain, no ear discharge, no tinnitis, no decreased hearing, no nose pain, no nasal congestion, no nasal discharge, no sinus pressure, no sinus pain, no epistaxis, no bleeding gums, no dental pain, no mouth pain, no dysphagia Cardiovascular: no chest pain, no orthopnea, no palpitations, no rapid/irregular heart beat, no edema, no syncope, no lightheadedness, no shortness of breath, no dyspnea on exertion, no paroxysmal nocturnal dyspnea, no claudication, no phlebitis, no high blood pressure, no leg edema Respiratory: no cough, no cough with sputum, no excessive sputum, no hemoptysis, no shortness of breath, no dyspnea on exertion, no congestion, no wheezing, no pleurisy, no pain, no pain on inspiration Gastrointestinal: no abdominal pain, no nausea, no vomiting, no diarrhea, no change in bowel habits, no hematemesis, no hematochezia Genitourinary Male: no dysuria, no hematuria, no flank pain, no discharge, no urinary frequency, no urinary hesitancy, no nocturia, no incontinence Rectal: no pain, no incontinence, no bleeding Musculoskeletal: no neck stiffness, no neck pain, no shooting arm pain, no arm numbness/tingling, no low back pain, no shooting leg pain, no leg numbne ss/tingling Integumentary: no pruritis, no redness, no sores, no wounds, no jaundice, no blisters, no darkening of skin, no depigmentation Neurological: no head injury, no transient paralysis, no paralysis, no parathesias, no numbness, no tingling, no seizures, no syncope, no tremors, no ataxia, no vertigo, no headaches, no migraines, no paralysis Psychiatric: suicidal ideation, no anxiety, no memory loss, no change in sleep habits, no sleep disturbances, no insomnia, no hypersomnia, no change in appetite Endocrine: no cold intolerance, no heat intolerance, no polyphagia, no excessive thirst, no polydipsia, no polyuria, no nocturia, no weight change Hematologic/Lymphatic: no easy bruising, no easy bleeding Allergic/Immunologic: no urticaria, no allergic rhinitis Exam - Constitutional Vitals: Temp Pulse Resp BP Pulse Ox 98.6 F 72 18 139/93 99 03/08/20 07:29 03/08/20 07:29 03/08/20 07:29 03/08/20 07:29 03/08/20 07:29 General appearance: Present: no acute distress - EENT Eyes: Present: PERRL, EOM intact ENT: hearing intact, clear oral mucosa - Neck Neck: Present: supple - Respiratory Respiratory effort: normal Respiratory: bilateral: CTA - Cardiovascular Rhythm: regular Heart Sounds: Present: S1 & S2. Absent: systolic murmur, diastolic murmur - Extremities Extremities: no ischemia, pulses intact, pulses symmetrical, No edema, normal temperature, normal color - Abdominal General gastrointestinal: Present: soft, non-tender, non-distended, normal bowel sounds - Integumentary Integumentary: Present: clear, warm, dry - Musculoskeletal Musculoskeletal: strength equal bilaterally - Psychiatric Psychiatric: cooperative - Neurologic Neurologic: CNII-XII intact, no focal deficits, moves all extremities - Allied Health Allied health notes reviewed: nursing Results - Labs CBC & Chem 7: 03/07/20 18:44 Labs: Abnormal lab results 03/07/20 03/07/20 03/07/20 Range/Units 18:33 18:41 18:44 MCV 80 L (84-94) fl MCH 27 L (28-32) pg RDW 18.1 H (13.2-15.2) % POC Glucose 135 H (70-105) Triglycerides 240 H (2-149) mg/dL Cholesterol 230 H (50-199) mg/dL LDL Cholesterol Direct 162 H (50-130) mg/dL Assessment and Plan - Patient Problems (1) Hypertension Current Visit: Yes Status: Chronic Plan to address problem: Patient and his girlfriend state that he is borderline hypertensive Started on low-dose amlodipine Blood pressure monitored by protocol Patient ASCVD risk score greater than 20% over 10 years without aspirin use therefore was r started on the low-dose aspirin (2) Schizoaffective disorder Current Visit: No Status: Acute Plan to address problem: Management per primary (3) DVT prophylaxis Current Visit: Yes Status: Acute Plan to address problem: SCDs to bilateral lower extremities while in bed
[2020-03-08] MEDS: ASPIRIN 81 MG TAB CHEW PO SCH (15:34)
[2020-03-08] MEDS: amLODIPine 5 MG TAB PO SCH (15:34)
[2020-03-08] MEDS: traZODone 50 MG TAB PO SCH (21:23)
[2020-03-08] MEDS ORDERED: MELATONIN 5 MG TAB PO PRN (22:00)
--- NOTE | 2020-03-09 08:24 | Progress Note ---
Subjective Date of service: 03/09/20 Principal diagnosis: Schizoaffective Disorder Subjective Comment: During my interview with the patient this morning, he is sitting in the dayroom. The patient states he is doing "better." He says "the meds are working." He says the "voices are decreasing." He denies SI/HI, stating "right now, I don't feel suicidal." He says "my fiance wants me to come home, and I feel like I'm ready." Reason for continued inpatient treatment: The patient has improved significantly, will continue to treat and plan for a safe discharge. REVIEW OF SYSTEMS Constitutional: Negative for weight loss ENT: Negative for stridor Respiratory: Negative for cough or hemoptysis All other systems reviewed and are negative MENTAL STATUS EXAMINATION General Appearance and Behavior: Age appropriate, wearing appropriate clothes, calm and cooperative. Polite Mood: "better" Affect and affective range: congruent with mood Thought Process: goal directed Thought Content: logical Speech: Normal volume, Regular rate and rhythm Suicidal Ideation: Denies Homicidal Ideation: Denies Hallucinations: Denies Delusions: None elicited Impulse Control: Unimpaired Insight and Judgment: Normal insight and judgment Memory: Normal Attention: Normal Orientation: Alert, oriented Assessment (1) Schizoaffective Disorder Treatment Plan Patient admitted for inpatient psychiatric evaluation, medication adjustment and close monitoring The patient's behavior, mood, sleep and appetite will be closely monitored. Patient enrolled in individual and group therapeutic sessions and encouraged to attend. Patient provided with a safe and structured environment. Patient's physical health needs will be addressed by the Hospitalist. Hospitalist Consulted Labs including CBC, CMP, Lipid profile and Hemoglobin A1C levels ordered for baseline reference Social Assessment will be completed and the Personal Lines Advisor will work with patient and family to ensure a suitable and safe disposition Medication adjustment will be made as clinically indicated No changes made today Usual Wellness Hindu/Preservation: - Start Trazodone 50 mg po QHS & 50 mg po QHS PRN between 10 PM & 2 AM for insomnia - Start Melatonin 5 mg po QHS to promote circadian rhythm The patient agreed on the treatment plan, understood the risk, benefit, alternative treatment, potential consequence of no treatment, and gave informed consent. The patient is expected to improve for the treatment of schizoaffective disorder. Estimated days: 2 Post hospital care: primary care provider, psychiatric provider Medications and Allergies Allergies Allergy/AdvReac Type Severity Reaction Status Date / Time fluoxetine [From Prozac] Allergy Unknown Verified 05/19/17 21:49 haloperidol [From Haldol] Allergy Unknown Verified 05/19/17 21:49 risperidone [From Risperdal] Allergy Unknown Verified 05/19/17 21:49 Home Medications Medication Instructions Recorded Confirmed Last Taken Type Benztropine 0.5 mg PO QAM 03/06/20 03/07/20 03/05/20 History OLANzapine [Zyprexa] 10 mg PO QHS 03/06/20 03/07/20 03/05/20 History Paliperidone Palmitate (Nf) 156 mg IM QMONTH 03/06/20 03/07/20 Unknown History [Invega Sustenna (Nf)] traZODone [Desyrel] 100 mg PO QHS 03/06/20 03/07/20 03/05/20 History Active Meds: Active Medications Amlodipine Besylate (Amlodipine) 5 mg PO QDAY [facility] Last Admin: 03/08/20 15:34 Dose: 5 mg Documented by: Aspirin (Baby Aspirin) 81 mg PO QDAY [facility] Last Admin: 03/08/20 15:34 Dose: 81 mg Documented by: Benztropine Mesylate (Cogentin) 0.5 mg PO DAILY [facility] Last Admin: 03/08/20 09:21 Dose: 0.5 mg Documented by: Melatonin (Melatonin) 5 mg PO QHS PRN PRN Reason: Sleep Olanzapine (Zyprexa) 15 mg PO QDAY [facility] Last Admin: 03/08/20 09:21 Dose: 15 mg Documented by: Trazodone HCl (Desyrel) 100 mg PO QHS [facility] Last Admin: 03/08/20 21:23 Dose: 100 mg Documented by: Results - Results Labs/Vitals: Laboratory Last Values WBC 4.9 K/mm3 (4.5-11.0) 03/07/20 18:44 RBC 4.49 M/mm3 (3.65-5.03) 03/07/20 18:44 Hgb 12.1 gm/dl (11.8-15.2) 03/07/20 18:44 Hct 35.7 % (35.5-45.6) 03/07/20 18:44 MCV 80 fl (84-94) L 03/07/20 18:44 MCH 27 pg (28-32) L 03/07/20 18:44 MCHC 34 % (32-34) 03/07/20 18:44 RDW 18.1 % (13.2-15.2) H 03/07/20 18:44 Plt Count 310 K/mm3 (140-440) 03/07/20 18:44 Lymph % (Auto) 33.0 % (13.4-35.0) 03/07/20 18:44 [place] % (Auto) 6.4 % (0.0-7.3) 03/07/20 18:44 Eos % (Auto) 3.6 % (0.0-4.3) 03/07/20 18:44 Baso % (Auto) 0.8 % (0.0-1.8) 03/07/20 18:44 Lymph # (Auto) 1.6 K/mm3 (1.2-5.4) 03/07/20 18:44 [place] # (Auto) 0.3 K/mm3 (0.0-0.8) 03/07/20 18:44 Eos # (Auto) 0.2 K/mm3 (0.0-0.4) 03/07/20 18:44 Baso # (Auto) 0.0 K/mm3 (0.0-0.1) 03/07/20 18:44 Seg Neutrophils % 56.2 % (40.0-70.0) 03/07/20 18:44 Seg Neutrophils # 2.8 K/mm3 (1.8-7.7) 03/07/20 18:44 POC Glucose 135 (70-105) H 03/07/20 18:33 Hemoglobin A1c 6.0 % (4-6) 03/07/20 18:41 Triglycerides 240 mg/dL (2-149) H 03/07/20 18:41 Cholesterol 230 mg/dL (50-199) H 03/07/20 18:41 LDL Cholesterol Direct 162 mg/dL (50-130) H 03/07/20 18:41 HDL Cholesterol 45 mg/dL (40-59) 03/07/20 18:41 Cholesterol/HDL Ratio 5.11 % 03/07/20 18:41 TSH 0.851 mlU/mL (0.270-4.200) 03/07/20 18:41 Last Vital Signs Temp 97.8 F 03/08/20 22:00 Pulse 80 03/08/20 22:00 Resp 18 03/08/20 22:00 BP 136/88 03/08/20 22:00 Pulse Ox 96 03/08/20 22:00
[2020-03-09] MEDS: ASPIRIN 81 MG TAB CHEW PO SCH (09:12)
[2020-03-09] MEDS: amLODIPine 5 MG TAB PO SCH (09:12)
[2020-03-09] MEDS: NICOTINE 21 MG/24 HR PATCH TD SCH (09:12)
[2020-03-09] MEDS: BENZTROPINE 0.5 MG TAB PO SCH (09:12)
[2020-03-09] MEDS: traZODone 50 MG TAB PO SCH (21:19)
[2020-03-09 22:32] VITALS: BP 145/84
[2020-03-10] MEDS: NICOTINE 21 MG/24 HR PATCH TD SCH (09:20)
[2020-03-10] MEDS: ASPIRIN 81 MG TAB CHEW PO SCH (09:21)
[2020-03-10] MEDS: amLODIPine 5 MG TAB PO SCH (09:21)
[2020-03-10] MEDS: BENZTROPINE 0.5 MG TAB PO SCH (09:22)
--- NOTE | 2020-03-10 09:30 | Discharge Summary ---
Providers - Providers Date of Admission: 03/07/20 17:04 Date of discharge: 03/10/20 Attending physician: CAPRICE PRINCE MD 03/07/20 17:04 Consult to Physician [CONS] Routine Comment: Consulting Provider: MARICEL MARTIN Physician Instructions: Reason For Exam: Medical management Primary care physician: [facility], Hospitalization Reason for admission: SI Admitting Diagnosis: F25.9 - SCHIZOAFFECTIVE DISORDER, UNSPECIFIED Condition: Stable Hospital course: The patient was provided inpatient psychiatric treatment with safe and supportive care, medication adjustment, adverse effect monitoring, medical evaluations, medical treatments, assessment and psycho-education. The patient's mood, cognition, behavior, moral support are improved and stabilized. St the time of discharge, the patient had no endangering behavior and no debilitating adverse effects. The patient agreed on potential consequences of no treatment and gave informed consent. Disposition: - TO HOME OR SELFCARE Time spent for discharge: 38 Allergies/Adverse Reactions: Allergies fluoxetine [From Prozac] Allergy (Verified 05/19/17 21:49) Unknown haloperidol [From Haldol] Allergy (Verified 05/19/17 21:49) Unknown risperidone [From Risperdal] Allergy (Verified 05/19/17 21:49) Unknown Vital Signs: Last Vital Signs Temp 98.2 F 03/09/20 22:00 Pulse 88 03/09/20 22:00 Resp 17 03/09/20 22:00 BP 145/84 03/09/20 22:00 Pulse Ox 96 03/09/20 22:00 Last Lab: Laboratory Last Values WBC 4.9 K/mm3 (4.5-11.0) 03/07/20 18:44 RBC 4.49 M/mm3 (3.65-5.03) 03/07/20 18:44 Hgb 12.1 gm/dl (11.8-15.2) 03/07/20 18:44 Hct 35.7 % (35.5-45.6) 03/07/20 18:44 MCV 80 fl (84-94) L 03/07/20 18:44 MCH 27 pg (28-32) L 03/07/20 18:44 MCHC 34 % (32-34) 03/07/20 18:44 RDW 18.1 % (13.2-15.2) H 03/07/20 18:44 Plt Count 310 K/mm3 (140-440) 03/07/20 18:44 Lymph % (Auto) 33.0 % (13.4-35.0) 03/07/20 18:44 [place] % (Auto) 6.4 % (0.0-7.3) 03/07/20 18:44 Eos % (Auto) 3.6 % (0.0-4.3) 03/07/20 18:44 Baso % (Auto) 0.8 % (0.0-1.8) 03/07/20 18:44 Lymph # (Auto) 1.6 K/mm3 (1.2-5.4) 03/07/20 18:44 [place] # (Auto) 0.3 K/mm3 (0.0-0.8) 03/07/20 18:44 Eos # (Auto) 0.2 K/mm3 (0.0-0.4) 03/07/20 18:44 Baso # (Auto) 0.0 K/mm3 (0.0-0.1) 03/07/20 18:44 Seg Neutrophils % 56.2 % (40.0-70.0) 03/07/20 18:44 Seg Neutrophils # 2.8 K/mm3 (1.8-7.7) 03/07/20 18:44 POC Glucose 135 (70-105) H 03/07/20 18:33 Hemoglobin A1c 6.0 % (4-6) 03/07/20 18:41 Triglycerides 240 mg/dL (2-149) H 03/07/20 18:41 Cholesterol 230 mg/dL (50-199) H 03/07/20 18:41 LDL Cholesterol Direct 162 mg/dL (50-130) H 03/07/20 18:41 HDL Cholesterol 45 mg/dL (40-59) 03/07/20 18:41 Cholesterol/HDL Ratio 5.11 % 03/07/20 18:41 TSH 0.851 mlU/mL (0.270-4.200) 03/07/20 18:41 Core Measure Documentation - Palliative Care Palliative Care/ Comfort Measures: Not Applicable - Core Measures Any of the following diagnoses?: none Exam - Constitutional Vitals: Temp Pulse Resp BP Pulse Ox 98.2 F 88 17 145/84 96 03/09/20 22:00 03/09/20 22:00 03/09/20 22:00 03/09/20 22:00 03/09/20 22:00 General appearance: Present: no acute distress - EENT Eyes: Present: PERRL, EOM intact ENT: hearing intact, clear oral mucosa - Neck Neck: Present: supple, normal ROM - Respiratory Respiratory effort: normal Plan Activity: advance as tolerated Weight Bearing Status: Weight Bear as Tolerated Care Plan Goals: Maintain good and stable mental health Plan of Treatment: The patient should be compliant with medications, not to use drugs, and not to drink alcohol. The patient understands that if suicidal ideas, homicidal ideas or any endangering feeling arise, the patient should seek assistance including, but not limited to crisis hotline, and emergency room. Health Concerns: HTN Assessment: Schizoaffective Disorder [facility] [Primary Care Provider] - 7 Days Prescriptions: Melatonin [Melatonin 5MG TAB] 5 mg PO QHS PRN #30 tablet PRN Reason: Sleep amLODIPine 5 mg PO QDAY #30 tablet Aspirin [Aspirin BABY CHEW TAB] 81 mg PO QDAY #30 tab.chew Nicotine [Habitrol] 21 mg TD QDAY #30 patch OLANzapine [ZyPREXA] 15 mg PO QDAY #60 tablet
--- NOTE | 2020-03-10 11:11 | Progress Note ---
Assessment and Plan - Patient Problems (1) Hypertension Current Visit: Yes Status: Chronic Qualifiers: Hypertension type: essential hypertension Qualified Code(s): I10 - Essential (primary) hypertension Plan to address problem: Monitor BP q shift, continue medical management. (2) Schizoaffective disorder Current Visit: No Status: Acute Plan to address problem: Supportive care, continue current therapy. History Interval history: 50 YO Male with HTN, PSA admitted to [facility] for Psychiatric stabilization. Patient denies any fevers, chills, cough, chest pain, hemoptysis, involuntary weight loss, fatigue or night sweats. Patient denies any sick contacts.No reported nursing events. Hospitalist Physical - Constitutional Vitals: Temp Pulse Resp BP Pulse Ox 98.2 F 88 17 145/84 96 03/09/20 22:00 03/09/20 22:00 03/09/20 22:00 03/09/20 22:00 03/09/20 22:00 General appearance: Present: no acute distress - EENT Eyes: Present: PERRL, EOM intact ENT: hearing intact - Neck Neck: Present: supple - Respiratory Respiratory effort: normal Respiratory: bilateral: CTA - Cardiovascular Rhythm: regular Heart Sounds: Present: S1 & S2 - Extremities Extremities: no ischemia Peripheral Pulses: within normal limits - Abdominal General gastrointestinal: soft, non-tender, non-distended - Integumentary Integumentary: Present: clear, dry - Psychiatric Psychiatric: cooperative - Neurologic Neurologic: CNII-XII intact Results - Labs CBC & Chem 7: 03/07/20 18:44 Labs: Laboratory Last Values WBC 4.9 K/mm3 (4.5-11.0) 03/07/20 18:44 RBC 4.49 M/mm3 (3.65-5.03) 03/07/20 18:44 Hgb 12.1 gm/dl (11.8-15.2) 03/07/20 18:44 Hct 35.7 % (35.5-45.6) 03/07/20 18:44 MCV 80 fl (84-94) L 03/07/20 18:44 MCH 27 pg (28-32) L 03/07/20 18:44 MCHC 34 % (32-34) 03/07/20 18:44 RDW 18.1 % (13.2-15.2) H 03/07/20 18:44 Plt Count 310 K/mm3 (140-440) 03/07/20 18:44 Lymph % (Auto) 33.0 % (13.4-35.0) 03/07/20 18:44 [place] % (Auto) 6.4 % (0.0-7.3) 03/07/20 18:44 Eos % (Auto) 3.6 % (0.0-4.3) 03/07/20 18:44 Baso % (Auto) 0.8 % (0.0-1.8) 03/07/20 18:44 Lymph # (Auto) 1.6 K/mm3 (1.2-5.4) 03/07/20 18:44 [place] # (Auto) 0.3 K/mm3 (0.0-0.8) 03/07/20 18:44 Eos # (Auto) 0.2 K/mm3 (0.0-0.4) 03/07/20 18:44 Baso # (Auto) 0.0 K/mm3 (0.0-0.1) 03/07/20 18:44 Seg Neutrophils % 56.2 % (40.0-70.0) 03/07/20 18:44 Seg Neutrophils # 2.8 K/mm3 (1.8-7.7) 03/07/20 18:44 POC Glucose 135 (70-105) H 03/07/20 18:33 Hemoglobin A1c 6.0 % (4-6) 03/07/20 18:41 Triglycerides 240 mg/dL (2-149) H 03/07/20 18:41 Cholesterol 230 mg/dL (50-199) H 03/07/20 18:41 LDL Cholesterol Direct 162 mg/dL (50-130) H 03/07/20 18:41 HDL Cholesterol 45 mg/dL (40-59) 03/07/20 18:41 Cholesterol/HDL Ratio 5.11 % 03/07/20 18:41 TSH 0.851 mlU/mL (0.270-4.200) 03/07/20 18:41 Alvares/IV: Voiding Method Toilet Active Medications - Current Medications Current Medications: Generic Name Dose Route Start Last Admin Trade Name Freq PRN Reason Stop Dose Admin Amlodipine Besylate 5 mg 03/08/20 15:00 03/10/20 09:21 Amlodipine PO 5 mg QDAY [facility] Administration Aspirin 81 mg 03/08/20 15:00 03/10/20 09:21 Baby Aspirin PO 81 mg QDAY [facility] Administration Benztropine Mesylate 0.5 mg 03/08/20 10:00 03/10/20 09:22 Cogentin PO 0.5 mg DAILY [facility] Administration Melatonin 5 mg 03/08/20 22:00 Melatonin PO QHS PRN Sleep Nicotine 21 mg 03/09/20 10:00 03/10/20 09:20 Habitrol TD 21 mg QDAY [facility] Administration Olanzapine 15 mg 03/08/20 10:00 03/10/20 09:21 Zyprexa PO 15 mg QDAY [facility] Administration Trazodone HCl 100 mg 03/07/20 22:00 03/09/20 21:19 Desyrel PO 100 mg QHS [facility] Administration
== END 2020-03-10 13:40 | disposition home or self-care (01) | DRG 885 ==
LOC: UNDOADMIN 15:32 → 3A 15:32 → 5A 17:04
PROVIDERS: ADMIT Psychiatry & Neurology Psychiatry; ATTEND Psychiatry & Neurology Psychiatry
DX: F25.9 Schizoaffective disorder, unspecified (principal); I10 Essential (primary) hypertension; Z88.8 Allergy status to other drugs, medicaments and biological substances; Z82.49 Family history of ischemic heart disease and other diseases of the circulatory system; F19.10 Other psychoactive substance abuse, uncomplicated
CPT/HCPCS: 36415; 80061; 82962; 83036; 84443; 85025; G0378